=== PATIENT | male | born 1955 | race African-American/Black ===

== ENCOUNTER 2019-08-25 16:47 | Observation (INO) | payer MEDICARE, MEDICAID ==
[2019-08-25] MEDS ORDERED: Sodium Chloride 0.9% 1,000 ML IV SCH ×2 (17:45→19:11)
--- NOTE | 2019-08-25 18:03 | PCM.HP.2 ---
<Kenneth Maynard - Last Filed: 08/25/19 18:25> H&P History of Present Illness - General Date of Service: 08/25/19 Admit Problem/Dx: Admission Diagnosis/Problem Admission Diagnosis/Problem Type 2 diabetes mellitus Source of Information: Patient, Provider, RN Notes Reviewed History Limitations: Reports: No Limitations - Related Data Allergies/Adverse Reactions: Allergies Allergy/AdvReac Type Severity Reaction Status Date / Time shellfish derived Allergy Hives Verified 08/25/19 17:20 Home Medications: Home Meds Albuterol Sulfate [Proair Digihaler] 90 mcg IH ASDIRECTED PRN 08/25/19 [History] Aspirin [Children's Aspirin] 81 mg PO DAILY 08/25/19 [History] Metoprolol Tartrate 6.25 mg PO DAILY 08/25/19 [History] Ticagrelor [Brilinta] 90 mg PO DAILY 08/25/19 [History] amLODIPine Besylate [Amlodipine Besylate] 10 mg PO DAILY 08/25/19 [History] atorvaSTATin [Lipitor] 40 mg PO DAILY 08/25/19 [History] lisinopriL [Lisinopril] 20 mg PO DAILY 08/25/19 [History] Past Medical History HEENT History: Reports: Impaired Vision Cardiovascular History: Reports: Hypertension Respiratory History: Reports: Sleep Apnea, Other (See Below) Other Respiratory History: Has CPAP Gastrointestinal History: Reports: Chronic Constipation, GERD Neurological History: Reports: CVA, TIA Endocrine/Metabolic History: Reports: Other (See Below) Other Endocrine/Metabolic History: not diagnosed but with recent blood glucose swings. Dermatologic History: Reports: Urticaria - Past Surgical History Cardiovascular Surgical History: Reports: Coronary Artery Stent, Other (See Below) Other Cardiovascular Surgeries/Procedures: right femoral stent Musculoskeletal Surgical History: Reports: Other (See Below) Other Musculoskeletal Surgeries/Procedures:: right third toe amputation Social & Family History - Tobacco Use Smoking Status *Q: Never Smoker - Caffeine Use Caffeine Use: Reports: Coffee, Tea - Recreational Drug Use Recreational Drug Use: No Exam - Vital Signs Vital Signs: Last Vital Signs Temp 96.7 F L 08/25/19 17:36 Pulse 89 08/25/19 17:36 Resp 18 08/25/19 17:36 BP 110/67 08/25/19 17:36 Pulse Ox 98 08/25/19 17:36 Weight: 264 lb 8.875 oz - Patient Data Lab Results Last 24 hrs: Laboratory Results - last 24 hr 08/25/19 08/25/19 08/25/19 Range/Units 17:18 17:18 17:18 WBC 13.7 H (4.5-11.0) K/uL RBC 6.10 H (4.30-5.90) M/uL Hgb 18.1 H* (12.0-15.0) g/dL Hct 53.3 (40.0-54.0) % MCV 87 (80-98) fL MCH 30 (27-31) pg MCHC 34 (32-36) % Plt Count 229 (150-400) K/uL Neut % (Auto) 74 H (36-66) % Lymph % (Auto) 17 L (24-44) % [place] % (Auto) 8 H (2-6) % Eos % (Auto) 1 L (2-4) % Baso % (Auto) 0 (0-1) % VBG pH 7.393 (7.350-7.450) Sodium 130 L (140-148) mmol/L Potassium 4.7 (3.6-5.2) mmol/L Chloride 96 L (100-108) mmol/L Carbon Dioxide 24 (21-32) mmol/L Anion Gap 14.7 H (5.0-14.0) mmol/L BUN 41 H (7-18) mg/dL Creatinine 2.1 H (0.8-1.3) mg/dL Est Cr Clr Drug Dosing 36.78 mL/min Estimated GFR (MDRD) 39 L (>60) Glucose 619 H* (74-106) mg/dL Calcium 9.8 (8.5-10.1) mg/dL Total Bilirubin 1.5 H (0.2-1.0) mg/dL AST 23 (15-37) U/L ALT 31 (12-78) U/L Alkaline Phosphatase 92 (46-116) U/L Total Protein 8.8 H (6.4-8.2) g/dL Albumin 3.9 (3.4-5.0) g/dL Globulin 4.9 H (2.3-3.5) g/dL Albumin/Globulin Ratio 0.8 L (1.2-2.2) Result Diagrams: 08/25/19 17:18 08/25/19 17:18 Sepsis Event Note - Evaluation Sepsis Screening Result: No Definite Risk - Focused Exam Vital Signs: Vital Signs Temp Pulse Resp BP Pulse Ox 08/25/19 17:36 96.7 F L 89 18 110/67 98 08/25/19 17:12 96.7 F L 89 18 110/67 98 Date Exam was Performed: 08/25/19 Time Exam was Performed: 18:25 Orders Last 24hrs: Active Orders 24 hr Category Date Time Status Patient Status Manage Transfer [TRANSFER] Routine ADT 08/25/19 17:50 Active UA W/MICROSCOPIC [URIN] Urgent Lab 08/25/19 17:07 Ordered Sodium Chloride 0.9% [Normal Saline] 1,000 ml Med 08/25/19 17:45 Active IV ASDIRECTED Resuscitation Status Routine Resus Stat 08/25/19 17:52 Ordered Medication Orders Sodium Chloride (Normal Saline) 1,000 mls @ 999 mls/hr IV ASDIRECTED MEG Departure - Departure Disposition: Admitted As Inpatient 64 - Discharge Information Instructions: Type 2 Diabetes Mellitus, Diagnosis, Adult, Insulin Treatment for Diabetes Mellitus, Carbohydrate Counting for Diabetes Mellitus, Pediatric, Diabetes Mellitus and Foot Care, Hypoglycemia, Hyperglycemia, [id number] Referrals: Britney Bernardo MD [Primary Care Provider] - Forms: ED Department Discharge <Alexander Ferrari - Last Filed: 08/26/19 00:51> H&P History of Present Illness - General Admit Problem/Dx: Admission Diagnosis/Problem Admission Diagnosis/Problem Type 2 diabetes mellitus - History of Present Illness Initial Comments - Free Text/Narative: 63-year-old male who has had a 25 to 30 pound weight loss over the past 2 weeks , frequent thirst, frequent urination, and lightheaded sensations with activity along with some mild dyspnea and intermittent chest pressure went into the clinic and was found to have a significantly elevated glucose. He does not have a history of diagnosed diabetes in the past. Denies nausea or vomiting, he has a mild intermittent headache but no pain otherwise. Nothing that would indicate an infection such as cough, sore throat, runny nose, gastrointestinal symptoms or dysuria. After his initial glucose was found elevated in the clinic , he was sent over to the emergency room for further evaluation. Onset of Symptoms: Reports: Unknown/Unsure (Symptoms for at least the last 2 weeks) Associated Symptoms: Reports: Chest Pain (Mild intermittent nonspecific chest pressure), Malaise, Weakness. Denies: Confusion, Cough, Fever/Chills, Nausea/ Vomiting, Shortness of Breath H&P Review of Systems - Review of Systems: Review Of Systems: See Below General: Reports: Weight Loss. Denies: Fever, Chills HEENT: Reports: Visual Changes (Feels like his vision has been blurry intermittently) Pulmonary: Denies: Shortness of Breath, Cough Cardiovascular: Reports: Chest Pain (Mild intermittent chest pressure) Gastrointestinal: Reports: No Symptoms Genitourinary: Reports: Other (Increased urinary frequency) Musculoskeletal: Reports: Muscle Pain (Generalized muscle aches, none currently) Skin: Denies: Rash Neurological: Reports: Headache (Minimal, intermittent headaches). Denies: Confusion, Numbness, Tingling Exam - Exam Exam: See Below - Vital Signs Vital Signs: Last Vital Signs Temp 96.7 F L 08/25/19 17:36 Pulse 89 08/25/19 17:36 Resp 18 08/25/19 17:36 BP 110/67 08/25/19 17:36 Pulse Ox 98 08/25/19 17:36 - Exam General: Alert, Oriented HEENT: PERRLA Lungs: Clear to Auscultation Cardiovascular: Regular Rhythm GI/Abdominal Exam: Soft, Non-Tender Extremities: No: Pedal Edema Skin: Warm, Dry, Intact Neuro Extensive - Mental Status: Alert, Oriented x3 Psychiatric: Alert, Normal Affect - Patient Data Lab Results Last 24 hrs: Laboratory Results - last 24 hr 08/25/19 08/25/19 08/25/19 Range/Units 17:18 17:18 17:18 WBC 13.7 H (4.5-11.0) K/uL RBC 6.10 H (4.30-5.90) M/uL Hgb 18.1 H* (12.0-15.0) g/dL Hct 53.3 (40.0-54.0) % MCV 87 (80-98) fL MCH 30 (27-31) pg MCHC 34 (32-36) % Plt Count 229 (150-400) K/uL Neut % (Auto) 74 H (36-66) % Lymph % (Auto) 17 L (24-44) % [place] % (Auto) 8 H (2-6) % Eos % (Auto) 1 L (2-4) % Baso % (Auto) 0 (0-1) % VBG pH 7.393 (7.350-7.450) Sodium 130 L (140-148) mmol/L Potassium 4.7 (3.6-5.2) mmol/L Chloride 96 L (100-108) mmol/L Carbon Dioxide 24 (21-32) mmol/L Anion Gap 14.7 H (5.0-14.0) mmol/L BUN 41 H (7-18) mg/dL Creatinine 2.1 H (0.8-1.3) mg/dL Est Cr Clr Drug Dosing 36.78 mL/min Estimated GFR (MDRD) 39 L (>60) Glucose 619 H* (74-106) mg/dL Calcium 9.8 (8.5-10.1) mg/dL Total Bilirubin 1.5 H (0.2-1.0) mg/dL AST 23 (15-37) U/L ALT 31 (12-78) U/L Alkaline Phosphatase 92 (46-116) U/L Total Protein 8.8 H (6.4-8.2) g/dL Albumin 3.9 (3.4-5.0) g/dL Globulin 4.9 H (2.3-3.5) g/dL Albumin/Globulin Ratio 0.8 L (1.2-2.2) Result Diagrams: 08/25/19 17:18 08/25/19 17:18 Sepsis Event Note - Focused Exam Vital Signs: Vital Signs Temp Pulse Resp BP Pulse Ox 08/25/19 17:36 96.7 F L 89 18 110/67 98 08/25/19 17:12 96.7 F L 89 18 110/67 98 Date Exam was Performed: 08/26/19 Time Exam was Performed: 00:50 Orders Last 24hrs: Active Orders 24 hr Category Date Time Status Patient Status Manage Transfer [TRANSFER] Routine ADT 08/25/19 17:50 Active UA W/MICROSCOPIC [URIN] Urgent Lab 08/25/19 17:07 Ordered Sodium Chloride 0.9% [Normal Saline] 1,000 ml Med 08/25/19 17:45 Active IV ASDIRECTED Resuscitation Status Routine Resus Stat 08/25/19 17:52 Ordered Medication Orders Sodium Chloride (Normal Saline) 1,000 mls @ 999 mls/hr IV ASDIRECTED MEG Last Admin: 08/25/19 18:05 Dose: 999 mls/hr Assessment/Plan Comment:: Dr. Maynard was consulted and will evaluate the patient for admission for newly diagnosed type 2 diabetes with hyperglycemia, weight loss and other associated symptoms. Departure - Departure Time of Disposition: 19:01
--- NOTE | 2019-08-25 18:50 | PCM.HP.2 ---
H&P History of Present Illness - General Date of Service: 08/25/19 Admit Problem/Dx: Admission Diagnosis/Problem Admission Diagnosis/Problem Type 2 diabetes mellitus Source of Information: Patient, Provider, RN Notes Reviewed History Limitations: Reports: No Limitations - History of Present Illness Initial Comments - Free Text/Narative: Mr. Camara is a 63-year-old gentleman who was admitted to observation status through the emergency department with weakness and dehydration secondary to uncontrolled new diagnosis of type 2 diabetes mellitus. He denies any previous history of diabetes and actually reports that he is somewhat surprised by this, as there is a strong family history of type 2 diabetes mellitus. 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 Over the last 2 weeks he has noted polyuria and polydipsia with progressive weakness and some weight loss. He was seen and evaluated in the clinic today and noted to have a blood sugar of over 600. He was sent to the emergency department for further evaluation. Blood glucose level is elevated here and there is evidence of dehydration on exam as well as worsening of some chronic renal insufficiency. - Related Data Allergies/Adverse Reactions: Allergies Allergy/AdvReac Type Severity Reaction Status Date / Time shellfish derived Allergy Hives Verified 08/25/19 17:20 Home Medications: Home Meds Albuterol Sulfate [Proair Digihaler] 90 mcg IH ASDIRECTED PRN 08/25/19 [History] Aspirin [Children's Aspirin] 81 mg PO DAILY 08/25/19 [History] Metoprolol Tartrate 6.25 mg PO DAILY 08/25/19 [History] Ticagrelor [Brilinta] 90 mg PO DAILY 08/25/19 [History] amLODIPine Besylate [Amlodipine Besylate] 10 mg PO DAILY 08/25/19 [History] atorvaSTATin [Lipitor] 40 mg PO DAILY 08/25/19 [History] lisinopriL [Lisinopril] 20 mg PO DAILY 08/25/19 [History] Past Medical History HEENT History: Reports: Impaired Vision Cardiovascular History: Reports: Hypertension Respiratory History: Reports: Sleep Apnea, Other (See Below) Other Respiratory History: Has CPAP Gastrointestinal History: Reports: Chronic Constipation, GERD Neurological History: Reports: CVA, TIA Endocrine/Metabolic History: Reports: Other (See Below) Other Endocrine/Metabolic History: not diagnosed but with recent blood glucose swings. Dermatologic History: Reports: Urticaria - Past Surgical History Cardiovascular Surgical History: Reports: Coronary Artery Stent, Other (See Below) Other Cardiovascular Surgeries/Procedures: right femoral stent Musculoskeletal Surgical History: Reports: Other (See Below) Other Musculoskeletal Surgeries/Procedures:: right third toe amputation Social & Family History - Tobacco Use Smoking Status *Q: Never Smoker - Caffeine Use Caffeine Use: Reports: Coffee, Tea - Recreational Drug Use Recreational Drug Use: No H&P Review of Systems - Review of Systems: Review Of Systems: See Below General: Reports: Malaise, Weakness, Other (Polydipsia). Denies: Fever, Chills HEENT: Reports: No Symptoms Pulmonary: Reports: No Symptoms Cardiovascular: Reports: No Symptoms Gastrointestinal: Reports: No Symptoms Genitourinary: Reports: Other (Polyuria) Musculoskeletal: Reports: No Symptoms Skin: Reports: No Symptoms Psychiatric: Reports: No Symptoms Neurological: Reports: No Symptoms Hematologic/Lymphatic: Reports: No Symptoms Immunologic: Reports: No Symptoms Exam - Exam Exam: See Below - Vital Signs Vital Signs: Last Vital Signs Temp 96.7 F L 08/25/19 17:36 Pulse 89 08/25/19 17:36 Resp 18 08/25/19 17:36 BP 110/67 08/25/19 17:36 Pulse Ox 98 08/25/19 17:36 Weight: 264 lb 8.875 oz - Exam Quality Assessment: DVT Prophylaxis General: Alert, Oriented, Cooperative, Mild Distress HEENT: Conjunctiva Clear, Hearing Intact, Normal Nasal Septum, Posterior Pharynx Clear, Pupils Equal. No: Mucosa Moist & [place] Neck: Supple, Trachea Midline, +2 Carotid Pulse wo Bruit Lungs: Clear to Auscultation, Normal Respiratory Effort Cardiovascular: Regular Rate, Regular Rhythm, Normal S1, Normal S2. No: Systolic Murmur, Diastolic Murmur GI/Abdominal Exam: Soft, Non-Tender, No Organomegaly, No Distention Back Exam: Normal Inspection, Full Range of Motion Extremities: Non-Tender, No Pedal Edema Skin: Warm, Dry, Intact Neurological: Cranial Nerves Intact, Strength Equal Bilateral, Normal Speech, Normal Tone, Sensation Intact. No: Focal Deficit Neuro Extensive - Mental Status: Alert, Oriented x3, Normal Mood/Affect, Normal Cognition, Memory Intact - Patient Data Lab Results Last 24 hrs: Laboratory Results - last 24 hr 08/25/19 08/25/19 08/25/19 Range/Units 17:18 17:18 17:18 WBC 13.7 H (4.5-11.0) K/uL RBC 6.10 H (4.30-5.90) M/uL Hgb 18.1 H* (12.0-15.0) g/dL Hct 53.3 (40.0-54.0) % MCV 87 (80-98) fL MCH 30 (27-31) pg MCHC 34 (32-36) % Plt Count 229 (150-400) K/uL Neut % (Auto) 74 H (36-66) % Lymph % (Auto) 17 L (24-44) % [place] % (Auto) 8 H (2-6) % Eos % (Auto) 1 L (2-4) % Baso % (Auto) 0 (0-1) % VBG pH 7.393 (7.350-7.450) Sodium 130 L (140-148) mmol/L Potassium 4.7 (3.6-5.2) mmol/L Chloride 96 L (100-108) mmol/L Carbon Dioxide 24 (21-32) mmol/L Anion Gap 14.7 H (5.0-14.0) mmol/L BUN 41 H (7-18) mg/dL Creatinine 2.1 H (0.8-1.3) mg/dL Est Cr Clr Drug Dosing 36.78 mL/min Estimated GFR (MDRD) 39 L (>60) Glucose 619 H* (74-106) mg/dL Calcium 9.8 (8.5-10.1) mg/dL Total Bilirubin 1.5 H (0.2-1.0) mg/dL AST 23 (15-37) U/L ALT 31 (12-78) U/L Alkaline Phosphatase 92 (46-116) U/L Total Protein 8.8 H (6.4-8.2) g/dL Albumin 3.9 (3.4-5.0) g/dL Globulin 4.9 H (2.3-3.5) g/dL Albumin/Globulin Ratio 0.8 L (1.2-2.2) Result Diagrams: 08/25/19 17:18 05/14/20 17:18 Sepsis Event Note - Evaluation Sepsis Screening Result: No Definite Risk - Focused Exam Vital Signs: Vital Signs Temp Pulse Resp BP Pulse Ox 08/25/19 17:36 96.7 F L 89 18 110/67 98 08/25/19 17:12 96.7 F L 89 18 110/67 98 Date Exam was Performed: 08/25/19 Time Exam was Performed: 18:29 *Q Meaningful Use (ADM) - VTE Risk Assess *Q Each Risk Factor Represents 1 Point: Obesity ( BMI > 25 kg/m2) Total Score 1 Point Risk Factors: 1 Each Risk Factor Represents 2 Points: Age 60 - 74 Years Total Score 2 Point Risk Factors: 2 Each Risk Factor Represents 3 Points: None Total Score 3 Point Risk Factors: 0 Each Risk Factor Represents 5 Points: None Total Score 5 Point Risk Factors: 0 Venous Thromboembolism Risk Factor Score *Q: 3 Problem List Initiated/Reviewed/Updated: Yes Orders Last 24hrs: Active Orders 24 hr Category Date Time Status Patient Status Manage Transfer [TRANSFER] Routine ADT 08/25/19 17:50 Active UA W/MICROSCOPIC [URIN] Urgent Lab 08/25/19 18:11 Received Sodium Chloride 0.9% [Normal Saline] 1,000 ml Med 08/25/19 17:45 Active IV ASDIRECTED Resuscitation Status Routine Resus Stat 08/25/19 17:52 Ordered Medication Orders Sodium Chloride (Normal Saline) 1,000 mls @ 999 mls/hr IV ASDIRECTED MEG Last Admin: 08/25/19 18:05 Dose: 999 mls/hr Assessment/Plan Comment:: ASSESSMENT AND PLAN NEW DIAGNOSIS TYPE 2 DIABETES MELLITUS-with marked hyperglycemia and dehydration. History of progressive weakness and weight loss with polydipsia and polyuria over the past few weeks. He reports a strong family history of type 2 diabetes mellitus. -Hemoglobin A1c in a.m. -IV fluids for hydration -Metformin 500 mg p.o. twice daily -Lantus insulin 20 units subcu at at bedtime -Low-dose sliding scale Humalog -Dietary consult -diabetic educator consult HYPERTENSION-blood pressure well controlled on current therapy -Continue usual outpatient medications CORONARY ARTERY DISEASE-currently asymptomatic -Continue outpatient medical therapy MAINTENANCE ISSUES -DVT prophylaxis; Lovenox 40 mg subcu daily -GI prophylaxis; not indicated -Epstein catheter; not indicated -Nutrition; consistent carb diet -Nicotine dependence; not required CODE STATUS-FULL CODE ADMISSION STATUS-this patient will be admitted to observation status, expect no more than a one night hospital stay for evaluation and management of problems as outlined above. DISPOSITION-anticipate discharge to home after the hospital stay. PRIMARY CARE PROVIDER-Dr. Bernardo - Mortality Measure Prognosis:: Good
[2019-08-25] MEDS ORDERED: Glucose Gel 15 GM in 37.5 GM Tube PO PRN (19:11)
[2019-08-25] MEDS ORDERED: Ondansetron 4 MG/2 ML SDV IV PRN (19:11)
[2019-08-25] MEDS ORDERED: Enoxaparin 40 MG/0.4 ML Syringe SUBCUT SCH (19:11)
[2019-08-25] MEDS ORDERED: Sodium Chloride 0.9% 10 ML Syringe FLUSH PRN (19:11)
[2019-08-25] MEDS ORDERED: Acetaminophen 325 MG Tab PO PRN (19:11)
[2019-08-25] MEDS ORDERED: Polyethylene Glycol 3350 Powder 17 GM Packet PO PRN (19:11)
[2019-08-25] MEDS ORDERED: 50% Dextrose in Water 50 ML Syringe IV PRN (19:11)
[2019-08-25] MEDS ORDERED: Albuterol 8 GM Inhaler INH PRN (20:09)
[2019-08-25] MEDS ORDERED: Insulin Glargine,Human Rec. Analog 100 Units/ML 3 ML Pen SUBCUT SCH (21:00)
[2019-08-25] MEDS ORDERED: Insulin Lispro 100 Units/ML 3 ML Vial SUBCUT ONE (21:03)
[2019-08-25] MEDS: Insulin Lispro 100 Unit/ML 3 ML KwikPen SUBCUT SCH (21:10)
--- NOTE | 2019-08-25 21:31 | PCM.SN.2 ---
- Free Text/Narrative Note: time 2100 call from [address] [place] [address] O: blood glucose accu check greater than 500 A: hyperglycemia P: give Lispro 20 units subcut once order lab draw to confirm blood glucose add venous pH continue blood glucose testing every 2 hours til blood glucose level near or at 200
[2019-08-25] MEDS: Insulin Lispro 100 Units/ML 3 ML Vial SUBCUT ONE ×2 (23:22→23:24)
[2019-08-25] MEDS: Sodium Chloride 0.9% 1,000 ML IV SCH (23:28)
[2019-08-26] MEDS: Sodium Chloride 0.9% 1,000 ML IV SCH (07:30)
[2019-08-26] MEDS ORDERED: Insulin Lispro 100 Unit/ML 3 ML KwikPen SUBCUT ONE ×3 (07:30→21:30)
[2019-08-26] MEDS ORDERED: Insulin Lispro 100 Units/ML 3 ML Vial SUBCUT ONE (07:30)
[2019-08-26] MEDS: Insulin Lispro 100 Unit/ML 3 ML KwikPen SUBCUT SCH ×4 (07:36→21:31)
[2019-08-26] MEDS ORDERED: metFORMIN 500 MG Tab PO SCH (08:00)
[2019-08-26 08:54] LABS: HEMOGLOBIN A1C 10.8 % (4.5-6.2)
[2019-08-26] MEDS: Aspirin 81 MG Tab.Chew PO SCH (09:37)
[2019-08-26] MEDS: Ticagrelor 90 MG Tab PO SCH (09:37)
[2019-08-26] MEDS: atorvaSTATin 20 MG Tab PO SCH (09:38)
[2019-08-26] MEDS: Lisinopril 20 MG Tab PO SCH (09:39)
[2019-08-26] MEDS: amLODIPine 10 MG Tab PO SCH (09:40)
[2019-08-26] MEDS: metFORMIN 500 MG Tab PO SCH ×2 (09:41→16:58)
[2019-08-26] MEDS: Metoprolol Tartrate 25 MG Tab PO SCH (09:42)
[2019-08-26] MEDS ORDERED: Benzocaine/Cetylpyridinium/Menthol Lozenge MUCMEM PRN (10:04)
--- NOTE | 2019-08-26 13:12 | PCM.PN ---
- General Info Date of Service: 08/26/19 Subjective Update: Mr. Camara has experienced some improvement in his renal function as well as glucose levels since admission. Glucose levels now been more in the 300 range with addition of metformin and long-acting insulin. He feels modestly improved as far as overall energy level. Functional Status: Reports: Tolerating Diet, Ambulating, Urinating - Review of Systems General: Reports: Weakness. Denies: Fever, Chills Pulmonary: Reports: No Symptoms Cardiovascular: Reports: No Symptoms Gastrointestinal: Reports: No Symptoms - Patient Data Vitals - Most Recent: Last Vital Signs Temp 97.3 F 08/26/19 10:56 Pulse 68 08/26/19 10:56 Resp 16 08/26/19 10:56 BP 117/64 08/26/19 10:56 Pulse Ox 95 08/26/19 10:56 Weight - Most Recent: 269 lb I&O - Last 24 Hours: Intake & Output 08/25/19 08/26/19 08/26/19 22:59 06:59 14:59 Intake Total 1000 2020 Output Total 300 1100 200 Balance -300 -100 1820 Lab Results Last 24 Hours: Laboratory Results - last 24 hr 08/25/19 08/25/19 08/25/19 Range/Units 17:18 17:18 17:18 WBC 13.7 H (4.5-11.0) K/uL RBC 6.10 H (4.30-5.90) M/uL Hgb 18.1 H* (12.0-15.0) g/dL Hct 53.3 (40.0-54.0) % MCV 87 (80-98) fL MCH 30 (27-31) pg MCHC 34 (32-36) % Plt Count 229 (150-400) K/uL Neut % (Auto) 74 H (36-66) % Lymph % (Auto) 17 L (24-44) % [place] % (Auto) 8 H (2-6) % Eos % (Auto) 1 L (2-4) % Baso % (Auto) 0 (0-1) % VBG pH 7.393 (7.350-7.450) Sodium 130 L (140-148) mmol/L Potassium 4.7 (3.6-5.2) mmol/L Chloride 96 L (100-108) mmol/L Carbon Dioxide 24 (21-32) mmol/L Anion Gap 14.7 H (5.0-14.0) mmol/L BUN 41 H (7-18) mg/dL Creatinine 2.1 H (0.8-1.3) mg/dL Est Cr Clr Drug Dosing 36.78 mL/min Estimated GFR (MDRD) 39 L (>60) Glucose 619 H* (74-106) mg/dL Hemoglobin A1c (4.5-6.2) % Calcium 9.8 (8.5-10.1) mg/dL Magnesium (1.8-2.4) mg/dL Total Bilirubin 1.5 H (0.2-1.0) mg/dL AST 23 (15-37) U/L ALT 31 (12-78) U/L Alkaline Phosphatase 92 (46-116) U/L Total Protein 8.8 H (6.4-8.2) g/dL Albumin 3.9 (3.4-5.0) g/dL Globulin 4.9 H (2.3-3.5) g/dL Albumin/Globulin Ratio 0.8 L (1.2-2.2) Urine Color (YELLOW) Urine Appearance (CLEAR) Urine pH (5.0-8.0) Ur Specific [place] (1.008-1.030) Urine Protein (NEGATIVE) mg/dL Urine Glucose (UA) (NEGATIVE) mg/dL Urine Ketones (NEGATIVE) mg/dL Urine Occult Blood (NEGATIVE) Urine Nitrite (NEGATIVE) Urine Bilirubin (NEGATIVE) Urine Urobilinogen (0.2-1.0) EU/dL Ur Leukocyte Esterase (NEGATIVE) Urine RBC (0-5) Urine WBC (0-5) Ur Epithelial Cells Amorphous Sediment Urine Bacteria Urine Mucus 08/25/19 08/25/19 08/25/19 Range/Units 18:11 21:07 21:07 WBC (4.5-11.0) K/uL RBC (4.30-5.90) M/uL Hgb (12.0-15.0) g/dL Hct (40.0-54.0) % MCV (80-98) fL MCH (27-31) pg MCHC (32-36) % Plt Count (150-400) K/uL Neut % (Auto) (36-66) % Lymph % (Auto) (24-44) % [place] % (Auto) (2-6) % Eos % (Auto) (2-4) % Baso % (Auto) (0-1) % VBG pH 7.335 L (7.350-7.450) Sodium (140-148) mmol/L Potassium (3.6-5.2) mmol/L Chloride (100-108) mmol/L Carbon Dioxide (21-32) mmol/L Anion Gap (5.0-14.0) mmol/L BUN (7-18) mg/dL Creatinine (0.8-1.3) mg/dL Est Cr Clr Drug Dosing mL/min Estimated GFR (MDRD) (>60) Glucose 550 H* (74-106) mg/dL Hemoglobin A1c (4.5-6.2) % Calcium (8.5-10.1) mg/dL Magnesium (1.8-2.4) mg/dL Total Bilirubin (0.2-1.0) mg/dL AST (15-37) U/L ALT (12-78) U/L Alkaline Phosphatase (46-116) U/L Total Protein (6.4-8.2) g/dL Albumin (3.4-5.0) g/dL Globulin (2.3-3.5) g/dL Albumin/Globulin Ratio (1.2-2.2) Urine Color Yellow (YELLOW) Urine Appearance Clear (CLEAR) Urine pH 5.5 (5.0-8.0) Ur Specific [place] 1.020 (1.008-1.030) Urine Protein Negative (NEGATIVE) mg/dL Urine Glucose (UA) 500 H (NEGATIVE) mg/dL Urine Ketones Negative (NEGATIVE) mg/dL Urine Occult Blood Negative (NEGATIVE) Urine Nitrite Negative (NEGATIVE) Urine Bilirubin Negative (NEGATIVE) Urine Urobilinogen 0.2 (0.2-1.0) EU/dL Ur Leukocyte Esterase Negative (NEGATIVE) Urine RBC 0-5 (0-5) Urine WBC 0-5 (0-5) Ur Epithelial Cells Rare Amorphous Sediment Not seen Urine Bacteria Not seen Urine Mucus Not seen 08/26/19 08/26/19 08/26/19 Range/Units 04:30 04:30 04:30 WBC 11.4 H (4.5-11.0) K/uL RBC 5.32 (4.30-5.90) M/uL Hgb 15.9 H D (12.0-15.0) g/dL Hct 47.0 (40.0-54.0) % MCV 88 (80-98) fL MCH 30 (27-31) pg MCHC 34 (32-36) % Plt Count 181 (150-400) K/uL Neut % (Auto) 57 (36-66) % Lymph % (Auto) 32 (24-44) % [place] % (Auto) 10 H (2-6) % Eos % (Auto) 1 L (2-4) % Baso % (Auto) 0 (0-1) % VBG pH (7.350-7.450) Sodium 133 L (140-148) mmol/L Potassium 4.6 (3.6-5.2) mmol/L Chloride 102 (100-108) mmol/L Carbon Dioxide 24 (21-32) mmol/L Anion Gap 11.6 (5.0-14.0) mmol/L BUN 36 H (7-18) mg/dL Creatinine 1.8 H (0.8-1.3) mg/dL Est Cr Clr Drug Dosing 42.91 mL/min Estimated GFR (MDRD) 46 L (>60) Glucose 371 H (74-106) mg/dL Hemoglobin A1c 10.8 H (4.5-6.2) % Calcium 8.1 L D (8.5-10.1) mg/dL Magnesium 2.1 (1.8-2.4) mg/dL Total Bilirubin (0.2-1.0) mg/dL AST (15-37) U/L ALT (12-78) U/L Alkaline Phosphatase (46-116) U/L Total Protein (6.4-8.2) g/dL Albumin (3.4-5.0) g/dL Globulin (2.3-3.5) g/dL Albumin/Globulin Ratio (1.2-2.2) Urine Color (YELLOW) Urine Appearance (CLEAR) Urine pH (5.0-8.0) Ur Specific [place] (1.008-1.030) Urine Protein (NEGATIVE) mg/dL Urine Glucose (UA) (NEGATIVE) mg/dL Urine Ketones (NEGATIVE) mg/dL Urine Occult Blood (NEGATIVE) Urine Nitrite (NEGATIVE) Urine Bilirubin (NEGATIVE) Urine Urobilinogen (0.2-1.0) EU/dL Ur Leukocyte Esterase (NEGATIVE) Urine RBC (0-5) Urine WBC (0-5) Ur Epithelial Cells Amorphous Sediment Urine Bacteria Urine Mucus Med Orders - Current: Current Medications Acetaminophen (Tylenol) 650 mg PO Q4H PRN PRN Reason: Pain (Mild 1-3)/fever Albuterol (Ventolin Hfa) 0 gm INH ASDIRECTED PRN PRN Reason: Dyspnea Amlodipine Besylate (Norvasc) 10 mg PO DAILY [facility] Last Admin: 08/26/19 09:40 Dose: 10 mg Aspirin (Aspirin) 81 mg PO DAILY [facility] Last Admin: 08/26/19 09:37 Dose: 81 mg Atorvastatin Calcium (Lipitor) 40 mg PO DAILY [facility] Last Admin: 08/26/19 09:38 Dose: 40 mg Benzocaine/Menthol (Cepacol Sore Throat) 1 lozenge MUCMEM ASDIRECTED PRN PRN Reason: Sore Throat Last Admin: 08/26/19 11:52 Dose: 1 vilma Dextrose (Glutose 15) 15 gm PO ONETIME PRN PRN Reason: Hypoglycemia Dextrose/Water (Dextrose 50% In Water) 50 ml IV ONETIME PRN PRN Reason: Hypoglycemia Enoxaparin Sodium (Lovenox) 40 mg SUBCUT BEDTIME [facility] Insulin Human Lispro (Humalog) 0 unit SUBCUT QIDACANDBED [facility]; Protocol Last Admin: 08/26/19 11:53 Dose: 4 units Lisinopril (Prinivil) 20 mg PO DAILY [facility] Last Admin: 08/26/19 09:39 Dose: 20 mg Metformin HCl (Glucophage) 500 mg PO BIDMEALS [facility] Last Admin: 08/26/19 09:41 Dose: 500 mg Metoprolol Tartrate (Lopressor) 6.25 mg PO DAILY [facility] Last Admin: 08/26/19 09:42 Dose: 6.25 mg Ondansetron HCl (Zofran) 4 mg IV Q4H PRN PRN Reason: Nausea/Vomiting Polyethylene Glycol (Miralax) 17 gm PO DAILY PRN PRN Reason: Constipation Sodium Chloride (Saline Flush) 10 ml FLUSH ASDIRECTED PRN PRN Reason: Keep Vein Open Ticagrelor (Brilinta) 90 mg PO DAILY [facility] Last Admin: 08/26/19 09:37 Dose: 90 mg Discontinued Medications Enoxaparin Sodium (Lovenox) 40 mg SUBCUT DAILY [facility] Last Admin: 08/25/19 21:17 Dose: 40 mg Sodium Chloride (Normal Saline) 1,000 mls @ 999 mls/hr IV ASDIRECTED [facility] Last Admin: 08/25/19 18:05 Dose: 999 mls/hr Sodium Chloride (Normal Saline) 1,000 mls @ 250 mls/hr IV ASDIRECTED [facility] Stop: 08/26/19 01:12 Last Admin: 08/25/19 19:47 Dose: 250 mls/hr Sodium Chloride (Normal Saline) 1,000 mls @ 125 mls/hr IV ASDIRECTED [facility] Last Admin: 08/26/19 07:30 Dose: 125 mls/hr Insulin Glargine (Lantus Solostar) 20 units SUBCUT BEDTIME [facility] Last Admin: 08/25/19 21:11 Dose: 20 units Insulin Human Lispro (Humalog) 20 unit SUBCUT ONETIME ONE Stop: 08/25/19 21:04 Last Admin: 08/25/19 21:13 Dose: 20 units Insulin Human Lispro (Humalog) 15 unit SUBCUT ONETIME ONE Stop: 08/25/19 23:07 Last Admin: 08/25/19 23:24 Dose: Not Given Insulin Human Lispro (Humalog) 15 unit SUBCUT ONETIME ONE Stop: 08/26/19 07:31 Last Admin: 08/26/19 07:37 Dose: 15 units Metformin HCl (Glucophage) 500 mg PO BIDMEALS [facility] - Exam Quality Assessment: DVT Prophylaxis General: Alert, Oriented, Cooperative, No Acute Distress Lungs: Clear to Auscultation, Normal Respiratory Effort Cardiovascular: Regular Rate, Regular Rhythm, No Murmurs GI/Abdominal Exam: Soft, Non-Tender, No Organomegaly, No Distention Extremities: Non-Tender, No Pedal Edema Sepsis Event Note - Evaluation Sepsis Screening Result: No Definite Risk - Focused Exam Vital Signs: Vital Signs Temp Pulse Pulse Resp BP BP Pulse Ox 08/26/19 10:56 97.3 F 68 16 117/64 95 08/26/19 09:42 71 117/62 08/26/19 09:40 117/62 08/26/19 09:39 117/62 05/15/20 07:00 97 F 65 16 128/68 98 08/26/19 02:54 96 F L 69 18 116/65 99 08/26/19 01:15 Pulse Ox 08/26/19 10:56 08/26/19 09:42 08/26/19 09:40 08/26/19 09:39 08/26/19 07:00 08/26/19 02:54 08/26/19 01:15 100 Date Exam was Performed: 08/26/19 Time Exam was Performed: 13:19 - Problem List Review Problem List Initiated/Reviewed/Updated: Yes - My Orders Last 24 Hours: My Active Orders 08/25/19 17:52 Resuscitation Status Routine 08/25/19 19:11 Patient Status [ADT] Routine Ambulate [RC] QID Blood Glucose Check, Bedside [RC] QIDACANDBED Communication Order [RC] STAT Diabetes Education [RC] Click to Edit Height and Weight [RC] 0500 Intake and Output [RC] QSHIFT Notify Provider Vital Signs [RC] ASDIRECTED Notify Provider [RC] PRN Oxygen Therapy [RC] PRN Peripheral IV Care [RC] Q12H Up ad Abby [RC] ASDIRECTED Up to Chair [RC] QID Vital Signs [RC] Q4H Acetaminophen [Tylenol] 650 mg PO Q4H PRN Dextrose 50% in Water 50 ml IV ONETIME PRN Dextrose [Glutose 15] 15 gm PO ONETIME PRN Ondansetron [Zofran] 4 mg IV Q4H PRN Sodium Chloride 0.9% [Saline Flush] 10 ml FLUSH ASDIRECTED PRN polyethylene glycoL 3350 [MiraLAX] 17 gm PO DAILY PRN Peripheral IV Insertion Adult [OM.PC] Routine 08/25/19 20:00 Insulin Lispro [HumaLOG] See Protocol SUBCUT QIDACANDBED 08/25/19 20:09 Albuterol [Ventolin HFA] 0 gm INH ASDIRECTED PRN 08/25/19 Dinner Consistent Carbohydrate Diet [DIET] 08/26/19 08:30 metFORMIN [Glucophage] 500 mg PO BIDMEALS 08/26/19 09:00 Aspirin 81 mg PO DAILY Metoprolol Tartrate [Lopressor] 6.25 mg PO DAILY Ticagrelor [Brilinta] 90 mg PO DAILY amLODIPine [Norvasc] 10 mg PO DAILY atorvaSTATin [Lipitor] 40 mg PO DAILY lisinopriL [Prinivil] 20 mg PO DAILY 08/26/19 10:04 Benzocaine/Cetylpyrd/Menthol [Cepacol Sore Throat] 1 lozenge MUCMEM ASDIRECTED PRN 08/26/19 13:09 Convert IV to Saline Lock [OM.PC] Routine 08/26/19 16:30 GLUCOSE POC LAB TO COLLECT [POC] QIDACANDBED 08/26/19 21:00 GLUCOSE POC LAB TO COLLECT [POC] QIDACANDBED Enoxaparin [Lovenox] 40 mg SUBCUT BEDTIME Insulin Glarg,Human.Rec.Analog [LantUS Solostar] 32 units SUBCUT BEDTIME 08/27/19 05:00 BASIC METABOLIC PANEL,BMP [CHEM] Timed 08/27/19 07:30 GLUCOSE POC LAB TO COLLECT [POC] QIDACANDBED 08/27/19 11:30 GLUCOSE POC LAB TO COLLECT [POC] QIDACANDBED 08/27/19 16:30 GLUCOSE POC LAB TO COLLECT [POC] QIDACANDBED 08/27/19 21:00 GLUCOSE POC LAB TO COLLECT [POC] QIDACANDBED 08/28/19 07:30 GLUCOSE POC LAB TO COLLECT [POC] QIDACANDBED 08/28/19 11:30 GLUCOSE POC LAB TO COLLECT [POC] QIDACANDBED 08/28/19 16:30 GLUCOSE POC LAB TO COLLECT [POC] QIDACANDBED 08/28/19 21:00 GLUCOSE POC LAB TO COLLECT [POC] QIDACANDBED 08/29/19 07:30 GLUCOSE POC LAB TO COLLECT [POC] QIDACANDBED 08/29/19 11:30 GLUCOSE POC LAB TO COLLECT [POC] QIDACANDBED 08/29/19 16:30 GLUCOSE POC LAB TO COLLECT [POC] QIDACANDBED 08/29/19 21:00 GLUCOSE POC LAB TO COLLECT [POC] QIDACANDBED 08/30/19 07:30 GLUCOSE POC LAB TO COLLECT [POC] QIDACANDBED 08/30/19 11:30 GLUCOSE POC LAB TO COLLECT [POC] QIDACANDBED 08/30/19 16:30 GLUCOSE POC LAB TO COLLECT [POC] QIDACANDBED - Plan Plan:: ASSESSMENT AND PLAN NEW DIAGNOSIS TYPE 2 DIABETES MELLITUS-with marked hyperglycemia and dehydration. History of progressive weakness and weight loss with polydipsia and polyuria over the past few weeks. He reports a strong family history of type 2 diabetes mellitus. He has improved from admission with better control of the glucose levels and resolution of dehydration. Hemoglobin A1c level elevated at 10.2. -Daily lock IV -Metformin 500 mg p.o. twice daily -Lantus insulin 32 units subcu at at bedtime -Low-dose sliding scale Humalog -Dietary consult -unit educator consult HYPERTENSION-blood pressure well controlled on current therapy -Continue usual outpatient medications CORONARY ARTERY DISEASE-currently asymptomatic -Continue outpatient medical therapy MAINTENANCE ISSUES -DVT prophylaxis; Lovenox 40 mg subcu daily -GI prophylaxis; not indicated -Epstein catheter; not indicated -Nutrition; consistent carb diet -Nicotine dependence; not required CODE STATUS-FULL CODE ADMISSION STATUS-this patient will be admitted to observation status, expect no more than a one night hospital stay for evaluation and management of problems as outlined above. DISPOSITION-anticipate discharge to home tomorrow PRIMARY CARE PROVIDER-Dr. Bernardo
[2019-08-26] MEDS ORDERED: Enoxaparin 40 MG/0.4 ML Syringe SUBCUT SCH (21:00)
[2019-08-26] MEDS ORDERED: Insulin Glargine,Human Rec. Analog 100 Units/ML 3 ML Pen SUBCUT SCH (21:00)
--- NOTE | 2019-08-26 21:46 | PCM.SN.2 ---
- Free Text/Narrative Note: time: 21:32 call from [address] [place] [address] O: blood glucose 415 A: diabetes type 2 P: order Humalog 20 units subcut now recheck blood glucose in 2 hours
[2019-08-27] MEDS: Insulin Lispro 100 Unit/ML 3 ML KwikPen SUBCUT SCH ×2 (07:37→11:34)
[2019-08-27] MEDS: metFORMIN 500 MG Tab PO SCH (07:38)
--- NOTE | 2019-08-27 09:59 | PCM.DCSUM1 ---
Discharge Summary - Hospital Course Brief History: Mr. Camara is a 63-year-old gentleman who was admitted through the emergency department with marked hyperglycemia secondary to new diagnosis of type 2 diabetes mellitus. - Discharge Data Discharge Date: 08/27/19 Discharge Disposition: Admitted As Inpatient 64 Condition: Fair - Referral to Home Health Primary Care Physician: Britney Bernardo MD - Discharge Diagnosis/Problem(s) (1) Hyperglycemia SNOMED Code(s): 21222452 ICD Code: R73.9 - HYPERGLYCEMIA, UNSPECIFIED Status: Acute Current Visit : Yes (2) Type 2 diabetes mellitus SNOMED Code(s): 75653091 ICD Code: E11.9 - TYPE 2 DIABETES MELLITUS WITHOUT COMPLICATIONS Status: Acute Current Visit: Yes (3) Dehydration SNOMED Code(s): 49991585 ICD Code: E86.0 - DEHYDRATION Status: Acute Current Visit: Yes - Patient Summary/Data Hospital Course: Mr. Camara is a 63-year-old gentleman who was admitted to observation status through the emergency department with weakness and dehydration secondary to uncontrolled new diagnosis of type 2 diabetes mellitus. He denies any previous history of diabetes. 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 Over the last 2 weeks he has noted polyuria and polydipsia with progressive weakness and some weight loss. He was seen and evaluated in the clinic today and noted to have a blood sugar of over 600. He was sent to the emergency department for further evaluation. Blood glucose level is elevated here and there is evidence of dehydration on exam as well as worsening of some chronic renal insufficiency. On admission he was given IV fluids for hydration and started on long-acting Lantus insulin in the evening. He was started on regular glucometer checks and low-dose sliding scale Humalog. In addition metformin was initiated at 500 mg twice daily. He was seen and evaluated by Deepika Blaise for diet and diabetes education. By the time of discharge blood sugars were into the 200 range, not yet within desired range and will require more fine-tuning. He will be discharged home on Lantus 32 units subcu daily and metformin 500 mg twice daily. [facility] for [facility] and test strips [facility] by Mrs. Welsh. Activity will be as tolerated and he will be on a diabetic diet. Follow-up appointments have been scheduled with his primary care provider as well as a outside collector within the next 7 days. - Patient Instructions Diet: Diabetic Diet Activity: As Tolerated - Discharge Plan *PRESCRIPTION DRUG MONITORING PROGRAM REVIEWED*: Not Applicable *COPY OF PRESCRIPTION DRUG MONITORING REPORT IN PATIENT MARCEL: Not Applicable Prescriptions/Med Rec: Insulin Glarg,Human.Rec.Analog [Lantus Solostar] 32 units SUBCUT DAILY #2 pen metFORMIN [Glucophage] 500 mg PO BIDMEALS #60 tablet Home Medications: Home Meds Albuterol Sulfate [Proair Digihaler] 90 mcg IH ASDIRECTED PRN 08/25/19 [History] Aspirin [Children's Aspirin] 81 mg PO DAILY 08/25/19 [History] Metoprolol Tartrate 6.25 mg PO DAILY 08/25/19 [History] Ticagrelor [Brilinta] 90 mg PO DAILY 08/25/19 [History] amLODIPine Besylate [Amlodipine Besylate] 10 mg PO DAILY 08/25/19 [History] atorvaSTATin [Lipitor] 40 mg PO DAILY 08/25/19 [History] lisinopriL [Lisinopril] 20 mg PO DAILY 08/25/19 [History] Insulin Glarg,Human.Rec.Analog [Lantus Solostar] 32 units SUBCUT DAILY #2 pen [Rx] metFORMIN [Glucophage] 500 mg PO BIDMEALS #60 tablet 08/27/19 [Rx] Patient Handouts: Type 2 Diabetes Mellitus, Diagnosis, Adult, Insulin Treatment for Diabetes Mellitus, Carbohydrate Counting for Diabetes Mellitus, Pediatric, Diabetes Mellitus and Foot Care, Hypoglycemia, Hyperglycemia, Easy-to -Read Forms: ED Department Discharge Referrals: Britney Bernardo MD [Primary Care Provider] - 09/01/19 1:30 pm (Please arrive 15 minutes early to register for your appointment.) Malinda Jaeger RN [Registered Nurse] - 08/31/19 10:00 am (PLEASE NOTE YOUR APPOINTMENT WITH MALINDA IS AT THE [facility].) - Discharge Summary/Plan Comment DC Time >30 min.: No - Patient Data Vitals - Most Recent: Last Vital Signs Temp 96.7 F L 08/27/19 04:22 Pulse 64 08/27/19 04:22 Resp 16 08/27/19 04:22 BP 116/61 08/27/19 04:22 Pulse Ox 96 08/27/19 04:22 Weight - Most Recent: 274 lb 12.8 oz I&O - Last 24 hours: Intake & Output 08/26/19 08/27/19 08/27/19 22:59 06:59 14:59 Intake Total 900 700 Output Total 1900 700 Balance -1000 0 Lab Results - Last 24 hrs: Laboratory Results - last 24 hr 08/27/19 Range/Units 04:10 Sodium 135 L (140-148) mmol/L Potassium 4.2 (3.6-5.2) mmol/L Chloride 103 (100-108) mmol/L Carbon Dioxide 22 (21-32) mmol/L Anion Gap 14.2 H (5.0-14.0) mmol/L BUN 28 H (7-18) mg/dL Creatinine 1.5 H (0.8-1.3) mg/dL Est Cr Clr Drug Dosing 51.49 mL/min Estimated GFR (MDRD) 57 L (>60) Glucose 264 H (74-106) mg/dL Calcium 7.4 L (8.5-10.1) mg/dL Med Orders - Current: Current Medications Acetaminophen (Tylenol) 650 mg PO Q4H PRN PRN Reason: Pain (Mild 1-3)/fever Last Admin: 08/26/19 20:42 Dose: 650 mg Albuterol (Ventolin Hfa) 0 gm INH ASDIRECTED PRN PRN Reason: Dyspnea Amlodipine Besylate (Norvasc) 10 mg PO DAILY [facility] Last Admin: 08/26/19 09:40 Dose: 10 mg Aspirin (Aspirin) 81 mg PO DAILY [facility] Last Admin: 08/26/19 09:37 Dose: 81 mg Atorvastatin Calcium (Lipitor) 40 mg PO DAILY [facility] Last Admin: 08/26/19 09:38 Dose: 40 mg Benzocaine/Menthol (Cepacol Sore Throat) 1 lozenge MUCMEM ASDIRECTED PRN PRN Reason: Sore Throat Last Admin: 08/26/19 11:52 Dose: 1 vilma Dextrose (Glutose 15) 15 gm PO ONETIME PRN PRN Reason: Hypoglycemia Dextrose/Water (Dextrose 50% In Water) 50 ml IV ONETIME PRN PRN Reason: Hypoglycemia Enoxaparin Sodium (Lovenox) 40 mg SUBCUT BEDTIME [facility] Last Admin: 08/26/19 21:52 Dose: 40 mg Insulin Glargine (Lantus Solostar) 32 units SUBCUT BEDTIME [facility] Last Admin: 08/26/19 21:48 Dose: 32 units Insulin Human Lispro (Humalog) 0 unit SUBCUT QIDACANDBED [facility]; Protocol Last Admin: 08/27/19 07:37 Dose: 3 units Lisinopril (Prinivil) 20 mg PO DAILY [facility] Last Admin: 08/26/19 09:39 Dose: 20 mg Metformin HCl (Glucophage) 500 mg PO BIDMEALS [facility] Last Admin: 08/27/19 07:38 Dose: 500 mg Metoprolol Tartrate (Lopressor) 6.25 mg PO DAILY [facility] Last Admin: 08/26/19 09:42 Dose: 6.25 mg Ondansetron HCl (Zofran) 4 mg IV Q4H PRN PRN Reason: Nausea/Vomiting Polyethylene Glycol (Miralax) 17 gm PO DAILY PRN PRN Reason: Constipation Sodium Chloride (Saline Flush) 10 ml FLUSH ASDIRECTED PRN PRN Reason: Keep Vein Open Ticagrelor (Brilinta) 90 mg PO DAILY [facility] Last Admin: 08/26/19 09:37 Dose: 90 mg Discontinued Medications Enoxaparin Sodium (Lovenox) 40 mg SUBCUT DAILY [facility] Last Admin: 08/25/19 21:17 Dose: 40 mg Sodium Chloride (Normal Saline) 1,000 mls @ 999 mls/hr IV ASDIRECTED [facility] Last Admin: 08/25/19 18:05 Dose: 999 mls/hr Sodium Chloride (Normal Saline) 1,000 mls @ 250 mls/hr IV ASDIRECTED [facility] Stop: 08/26/19 01:12 Last Admin: 08/25/19 19:47 Dose: 250 mls/hr Sodium Chloride (Normal Saline) 1,000 mls @ 125 mls/hr IV ASDIRECTED [facility] Last Admin: 08/26/19 07:30 Dose: 125 mls/hr Insulin Glargine (Lantus Solostar) 20 units SUBCUT BEDTIME [facility] Last Admin: 08/25/19 21:11 Dose: 20 units Insulin Human Lispro (Humalog) 20 unit SUBCUT ONETIME ONE Stop: 08/25/19 21:04 Last Admin: 08/25/19 21:13 Dose: 20 units Insulin Human Lispro (Humalog) 15 unit SUBCUT ONETIME ONE Stop: 08/25/19 23:07 Last Admin: 08/25/19 23:24 Dose: Not Given Insulin Human Lispro (Humalog) 15 unit SUBCUT ONETIME ONE Stop: 08/26/19 07:31 Last Admin: 08/26/19 07:37 Dose: 15 units Insulin Human Lispro (Humalog) 10 unit SUBCUT ONETIME ONE Stop: 08/26/19 16:46 Last Admin: 08/26/19 16:59 Dose: 10 units Insulin Human Lispro (Humalog) 20 unit SUBCUT ONETIME ONE Stop: 08/26/19 21:31 Last Admin: 08/26/19 21:47 Dose: 20 units Metformin HCl (Glucophage) 500 mg PO BIDMEALS MEG - Exam Quality Assessment: Reports: DVT Prophylaxis General: Reports: Alert, Oriented, Cooperative, No Acute Distress Lungs: Reports: Clear to Auscultation, Normal Respiratory Effort Cardiovascular: Reports: Regular Rate, Regular Rhythm, No Murmurs GI/Abdominal Exam: Soft, Non-Tender, No Organomegaly, No Distention Extremities: Non-Tender, No Pedal Edema
[2019-08-27] MEDS: Lisinopril 20 MG Tab PO SCH (10:04)
[2019-08-27] MEDS: Aspirin 81 MG Tab.Chew PO SCH (10:05)
[2019-08-27] MEDS: Metoprolol Tartrate 25 MG Tab PO SCH (10:05)
[2019-08-27] MEDS: amLODIPine 10 MG Tab PO SCH (10:05)
[2019-08-27] MEDS: Ticagrelor 90 MG Tab PO SCH (10:05)
[2019-08-27] MEDS: atorvaSTATin 20 MG Tab PO SCH (10:06)
--- NOTE | 2019-08-30 09:10 | EDM.PDOC ---
ED HPI GENERAL MEDICAL PROBLEM - General Chief Complaint: General Stated Complaint: HEADACHE,MUSCLE ACHES,WEAKNESS Time Seen by Provider: 08/25/19 17:50 Source of Information: Reports: Patient, Provider, RN Notes Reviewed History Limitations: Reports: No Limitations - History of Present Illness INITIAL COMMENTS - FREE TEXT/NARRATIVE: 63-year-old male who has had a 25 to 30 pound weight loss over the past 2 weeks , frequent thirst, frequent urination, and lightheaded sensations with activity along with some mild dyspnea and intermittent chest pressure went into the clinic and was found to have a significantly elevated glucose. He does not have a history of diagnosed diabetes in the past. Denies nausea or vomiting, he has a mild intermittent headache but no pain otherwise. Nothing that would indicate an infection such as cough, sore throat, runny nose, gastrointestinal symptoms or dysuria. After his initial glucose was found elevated in the clinic , he was sent over to the emergency room for further evaluation. Onset: Unknown/Unsure Duration: Week(s): (At least 2 weeks) Associated Symptoms: Reports: Chest Pain (Mild intermittent nonspecific chest pressure), Malaise, Weakness. Denies: Confusion, Fever/Chills, Nausea/Vomiting , Shortness of Breath - Related Data Allergies Allergy/AdvReac Type Severity Reaction Status Date / Time shellfish derived Allergy Hives Verified 08/25/19 17:20 Home Meds: Home Meds Albuterol Sulfate [Proair Digihaler] 90 mcg IH ASDIRECTED PRN 08/25/19 [History] Aspirin [Children's Aspirin] 81 mg PO DAILY 08/25/19 [History] Metoprolol Tartrate 6.25 mg PO DAILY 08/25/19 [History] Ticagrelor [Brilinta] 90 mg PO DAILY 08/25/19 [History] amLODIPine Besylate [Amlodipine Besylate] 10 mg PO DAILY 08/25/19 [History] atorvaSTATin [Lipitor] 40 mg PO DAILY 08/25/19 [History] lisinopriL [Lisinopril] 20 mg PO DAILY 08/25/19 [History] Insulin Glarg,Human.Rec.Analog [Lantus Solostar] 32 units SUBCUT DAILY #2 pen [Rx] metFORMIN [Glucophage] 500 mg PO BIDMEALS #60 tablet 08/27/19 [Rx] Past Medical History HEENT History: Reports: Hard of Hearing, Impaired Vision Cardiovascular History: Reports: Hypertension Respiratory History: Reports: Sleep Apnea, Other (See Below) Other Respiratory History: Has CPAP Gastrointestinal History: Reports: Chronic Constipation, GERD Neurological History: Reports: CVA, TIA Endocrine/Metabolic History: Reports: Other (See Below) Other Endocrine/Metabolic History: not diagnosed but with recent blood glucose swings. Dermatologic History: Reports: Urticaria - Infectious Disease History Infectious Disease History: Reports: Chicken Pox - Past Surgical History Cardiovascular Surgical History: Reports: Coronary Artery Stent, Other (See Below) Other Cardiovascular Surgeries/Procedures: right femoral stent Musculoskeletal Surgical History: Reports: Other (See Below) Other Musculoskeletal Surgeries/Procedures:: right third toe amputation Social & Family History - Family History Family Medical History: Noncontributory - Tobacco Use Smoking Status *Q: Never Smoker Second Hand Smoke Exposure: No - Caffeine Use Caffeine Use: Reports: Coffee, Tea - Recreational Drug Use Recreational Drug Use: No ED ROS GENERAL - Review of Systems Review Of Systems: See Below Constitutional: Reports: Weight Loss. Denies: Fever, Chills HEENT: Reports: Vision Change (Feels like his vision has been blurry intermittently) Respiratory: Denies: Shortness of Breath, Cough Cardiovascular: Reports: No Symptoms. Denies: Chest Pain GI/Abdominal: Reports: No Symptoms : Reports: Other (Increased urinary frequency) Skin: Denies: Rash Neurological: Reports: Headache (Minimal intermittent headaches). Denies: Confusion, Dizziness, Tingling ED EXAM, GENERAL - Physical Exam Exam: See Below Exam Limited By: No Limitations General Appearance: Alert, No Apparent Distress Eye Exam: Bilateral Eye: EOMI, PERRL Head: Atraumatic Respiratory/Chest: No Respiratory Distress, Lungs Clear Cardiovascular: Regular Rate, Rhythm GI/Abdominal: Soft, Non-Tender, No Organomegaly, No Distention Back Exam: Normal Inspection, Full Range of Motion Extremities: Non-Tender, No Pedal Edema Neurological: Alert, Oriented Psychiatric: Normal Affect, Normal Mood Skin Exam: Warm, Dry Course - Vital Signs Last Recorded V/S: Last Vital Signs Temp 97.4 F 08/27/19 10:52 Pulse 73 08/27/19 10:52 Resp 16 08/27/19 10:52 BP 125/71 08/27/19 10:52 Pulse Ox 98 08/27/19 10:52 - Orders/Labs/Meds Labs: Laboratory Tests 08/25/19 08/25/19 08/25/19 Range/Units 17:18 17:18 17:18 WBC 13.7 H (4.5-11.0) K/uL RBC 6.10 H (4.30-5.90) M/uL Hgb 18.1 H* (12.0-15.0) g/dL Hct 53.3 (40.0-54.0) % MCV 87 (80-98) fL MCH 30 (27-31) pg MCHC 34 (32-36) % Plt Count 229 (150-400) K/uL Neut % (Auto) 74 H (36-66) % Lymph % (Auto) 17 L (24-44) % Davison % (Auto) 8 H (2-6) % Eos % (Auto) 1 L (2-4) % Baso % (Auto) 0 (0-1) % VBG pH 7.393 (7.350-7.450) Sodium 130 L (140-148) mmol/L Potassium 4.7 (3.6-5.2) mmol/L Chloride 96 L (100-108) mmol/L Carbon Dioxide 24 (21-32) mmol/L Anion Gap 14.7 H (5.0-14.0) mmol/L BUN 41 H (7-18) mg/dL Creatinine 2.1 H (0.8-1.3) mg/dL Est Cr Clr Drug Dosing 36.78 mL/min Estimated GFR (MDRD) 39 L (>60) Glucose 619 H* (74-106) mg/dL Calcium 9.8 (8.5-10.1) mg/dL Total Bilirubin 1.5 H (0.2-1.0) mg/dL AST 23 (15-37) U/L ALT 31 (12-78) U/L Alkaline Phosphatase 92 (46-116) U/L Total Protein 8.8 H (6.4-8.2) g/dL Albumin 3.9 (3.4-5.0) g/dL Globulin 4.9 H (2.3-3.5) g/dL Albumin/Globulin Ratio 0.8 L (1.2-2.2) Meds: Medications Discontinued Medications Generic Name Dose Route Start Last Admin Trade Name Freq PRN Reason Stop Dose Admin Acetaminophen 650 mg 08/25/19 19:11 08/26/19 20:42 Tylenol PO 650 mg Q4H PRN Administration Pain (Mild 1-3)/fever Albuterol 0 gm 08/25/19 20:09 Ventolin Hfa INH ASDIRECTED PRN Dyspnea Amlodipine Besylate 10 mg 08/26/19 09:00 08/27/19 10:05 Norvasc PO 10 mg DAILY MEG Administration Aspirin 81 mg 08/26/19 09:00 08/27/19 10:05 Aspirin PO 81 mg DAILY MEG Administration Atorvastatin Calcium 40 mg 08/26/19 09:00 08/27/19 10:06 Lipitor PO 40 mg DAILY MEG Administration Benzocaine/Menthol 1 lozenge 08/26/19 10:04 08/26/19 11:52 Cepacol Sore Throat MUCMEM 1 vilma ASDIRECTED PRN Administration Sore Throat Dextrose 15 gm 08/25/19 19:11 Glutose 15 PO ONETIME PRN Hypoglycemia Dextrose/Water 50 ml 08/25/19 19:11 Dextrose 50% In Water IV ONETIME PRN Hypoglycemia Enoxaparin Sodium 40 mg 08/25/19 19:11 08/25/19 21:17 Lovenox SUBCUT 40 mg DAILY MEG Administration Enoxaparin Sodium 40 mg 08/26/19 21:00 08/26/19 21:52 Lovenox SUBCUT 40 mg BEDTIME MEG Administration Sodium Chloride 1,000 mls @ 999 mls/hr 08/25/19 17:45 08/25/19 18:05 Normal Saline IV 999 mls/hr ASDIRECTED MEG Administration Sodium Chloride 1,000 mls @ 250 mls/hr 08/25/19 19:11 08/25/19 19:47 Normal Saline IV 08/26/19 01:12 250 mls/hr ASDIRECTED MEG Administration Sodium Chloride 1,000 mls @ 125 mls/hr 08/26/19 00:01 08/26/19 07:30 Normal Saline IV 125 mls/hr ASDIRECTED MEG Administration Insulin Glargine 20 units 08/25/19 21:00 08/25/19 21:11 Lantus Solostar SUBCUT 20 units BEDTIME MEG Administration Insulin Glargine 32 units 08/26/19 21:00 08/26/19 21:48 Lantus Solostar SUBCUT 32 units BEDTIME MEG Administration Insulin Human Lispro 0 unit 08/25/19 20:00 08/27/19 11:34 Humalog SUBCUT 3 units QIDACANDBED MEG Administration Protocol Insulin Human Lispro 20 unit 08/25/19 21:03 08/25/19 21:13 Humalog SUBCUT 08/25/19 21:04 20 units ONETIME ONE Administration Insulin Human Lispro 15 unit 08/25/19 23:06 08/25/19 23:24 Humalog SUBCUT 08/25/19 23:07 Not Given ONETIME ONE Insulin Human Lispro 15 unit 08/26/19 07:30 08/26/19 07:37 Humalog SUBCUT 08/26/19 07:31 15 units ONETIME ONE Administration Insulin Human Lispro 10 unit 08/26/19 16:45 08/26/19 16:59 Humalog SUBCUT 08/26/19 16:46 10 units ONETIME ONE Administration Insulin Human Lispro 20 unit 08/26/19 21:30 08/26/19 21:47 Humalog SUBCUT 08/26/19 21:31 20 units ONETIME ONE Administration Lisinopril 20 mg 08/26/19 09:00 08/27/19 10:04 Prinivil PO 20 mg DAILY [facility] Administration Metformin HCl 500 mg 08/26/19 08:00 Glucophage PO BIDMEALS [facility] Metformin HCl 500 mg 08/26/19 08:30 08/27/19 07:38 Glucophage PO 500 mg BIDMEALS [facility] Administration Metoprolol Tartrate 6.25 mg 08/26/19 09:00 08/27/19 10:05 Lopressor PO 6.25 mg DAILY [facility] Administration Ondansetron HCl 4 mg 08/25/19 19:11 Zofran IV Q4H PRN Nausea/Vomiting Polyethylene Glycol 17 gm 08/25/19 19:11 Miralax PO DAILY PRN Constipation Sodium Chloride 10 ml 08/25/19 19:11 Saline Flush FLUSH ASDIRECTED PRN Keep Vein Open Ticagrelor 90 mg 08/26/19 09:00 08/27/19 10:05 Brilinta PO 90 mg DAILY MEG Administration - Re-Assessments/Exams Free Text/Narrative Re-Assessment/Exam: 08/30/19 09:14 Patient has new onset significant diabetes, and will need 1 to 2 days of hospitalization for stabilization and initiation of treatment. Dr. Maynard was consulted for admission. Departure - Departure Time of Disposition: 19:01 Disposition: Refer to Observation Clinical Impression: Hyperglycemia, Type 2 diabetes mellitus - Discharge Information *PRESCRIPTION DRUG MONITORING PROGRAM REVIEWED*: Not Applicable *COPY OF PRESCRIPTION DRUG MONITORING REPORT IN PATIENT MARCEL: Not Applicable Sepsis Event Note - Evaluation Sepsis Screening Result: No Definite Risk - Focused Exam Date Exam was Performed: 08/30/19 Time Exam was Performed: 09:16
== END 2019-08-27 13:30 | disposition critical access hospital (66) ==
LOC: JP.ED 16:47 → JP.MS 17:50
PROVIDERS: ADMIT Hospitalist; ATTEND Hospitalist
DX: E11.65 Type 2 diabetes mellitus with hyperglycemia (principal); E86.0 Dehydration; I25.10 Atherosclerotic heart disease of native coronary artery without angina pectoris; E11.22 Type 2 diabetes mellitus with diabetic chronic kidney disease; I12.9 Hypertensive chronic kidney disease with stage 1 through stage 4 chronic kidney disease, or unspecified chronic kidney disease; N18.9 Chronic kidney disease, unspecified; Z79.899 Other long term (current) drug therapy; Z83.3 Family history of diabetes mellitus; Z91.013 Allergy to seafood; Z89.421 Acquired absence of other right toe(s)
CPT/HCPCS: 36415; 80048; 80053; 81001; 82800; 82947; 82962; 83036; 83735; 85025; A9270; J1650; J1815; J7030; 99284